=== PATIENT | female | born 1950 | race Caucasian/White ===

== ENCOUNTER → 2017-04-12 | Outpatient (CLI) | payer MEDICARE, OTHER | LOC: HEART 5 10:34 | DX: I65.23 Occlusion and stenosis of bilateral carotid arteries (principal) ==

== ENCOUNTER → 2021-01-17 | Outpatient (CLI) | payer MEDICARE, OTHER ==
[~2021-01-17] MED LIST: ACETAMINOPHEN-1 EAC1 PO; AEROECLIPSE II1 EACH MC; ALBUTEROL2.5 MG/3 M INH; ASPIRIN81 MG PO; BENADRYL25 MG PO; BENTYL 20MG TAB20 MG PO; BIOTIN1 MG PO; CALCIUM 500 +1 EACH PO; CALCIUM CARBON400 MG PO; CLARITIN10 MG PO; CONSTULOSE10 GM/15 M PO; DULERA 100 MCG8.8 GM INH; DULERA 200 MCG8.8 GM INH; ELIQUIS 5 MG TAB5 MG PO; EPIPEN 2-P0.3 MG/0.3 INJ; FERROUS SU300 MG/5 M PEG; FLORINEF 0.1 M0.1 MG PO; HYDRALAZINE HC100 MG PO; HYDROXYZINE HCL25 MG PO; IPRAT-ALBUT 0.5-3 ML INH; K-DUR TAB 20 M20 MEQ PO; KEFLEX500 MG PO; LEVAQUIN500 MG PO; LEVOFLOXACIN500 MG PO; LEVOFLOXACIN750 MG PO; LISINOPRIL20 MG PO; LOPRESSOR 50 MG50 MG PO; LOVASTATIN20 MG PO; MIRALAX17 GM PO; MUCINEX FAST-M1 EAC2 PO; MUCUS RELIEF PO; MULTIPLE VITAM1 EACH PO; NEURONTIN 400400 MG PO; NITROSTAT0.4 MG SL; OMEGA-3 PO; PEPCID20 MG PO; POTASSIUM PO; PREDNISONE20 MG PO; PROAMATINE 2.52.5 MG PO; PROBIOTIC1 EAC1 PO; PROBIOTIC1 EAC3 PO; SPIRIVA RESPIMAT4 GM INH; SULFAMETHOXAZO1 EACH PO; SYNTHROID50 MCG PO; TENORMIN 25 MG25 MG PO; VENTOLIN HFA 66.7 GM INH; VISTARIL 25 MG25 MG PO; VITAMIN B-12500 MC2 PO; VITAMIN D31000 UNI1 PO; ZANTAC 150 MG150 MG PO
--- NOTE | 2021-01-17 17:21 | NUR ---
1700 CALLED BY RADIOLOGIST TO GET INTO CONTACT WITH DR. WILLARD IVERSON WITH CRITICAL CT RESULTS, I WAS UNABLE TO FIND CONTACT INFORMATION FOR DR. WILLARD IVERSON AFTER MULTIPLE ATTEMPTS, NOTIFIED RADIOLOGIST AND INSTRUCTED TO CONTACT PT AND NOTIFIY THEM OF THE NEED TO BE SEEN BY A MD IN THE ED. CALLED THE PT AND INFORMED HER THAT SHE NEEDED TO BE EVALUATED BY A MD DUE TO HER CT RESULTS AND THAT SHE NEEDED TO COME TO THE ER AND THAT WE WERE UNABLE TO REACH DR. IVERSON, PT STATES SHE HAS BEEN LIVING WITH THIS PAIN FOR A WHILE AND THAT SHE WOULD WAIT UNTIL SHE TALKED TO DR. IVERSON ON WEDNESDAY. I INFORMED HER MULTIPLE TIMES THAT SHE NEEDED TO BE SEEN IN THE ED. PT VERBALIZED UNDERSTANDING OF INSTRUCTIONS
== END ==
LOC: MRI 01-14 15:00
DX: M51.37 Other intervertebral disc degeneration, lumbosacral region (principal); M51.36 Other intervertebral disc degeneration, lumbar region; M50.31 Other cervical disc degeneration, high cervical region; M43.12 Spondylolisthesis, cervical region
CPT/HCPCS: 72141; 72148

== ENCOUNTER → 2021-01-30 | Outpatient (CLI) | payer MEDICARE, OTHER | LOC: LAB 10:43 | DX: M46.40 Discitis, unspecified, site unspecified (principal) | CPT/HCPCS: 36415; 85652; 86140 ==

== ENCOUNTER 2021-02-04 11:54 | Inpatient (IN) | payer MEDICARE, OTHER ==
[~2021-02-04] VITALS: Ht 157.5 cm; Wt 53.1 kg
[~2021-02-04 11:54] MED LIST changes: -FERROUS SU300 MG/5 M PEG; -K-DUR TAB 20 M20 MEQ PO; -LEVOFLOXACIN750 MG PO; -SULFAMETHOXAZO1 EACH PO
[2021-02-04 12:48] LABS: HEMOGLOBIN 10.6 gm/dl (12.3-15.3); RED BLOOD COUNT 3.75 M/UL (4.00-5.10); WHITE BLOOD COUNT 19.2 K/UL (4.5-11.0)
[2021-02-04 13:25] LABS: BUN/CREATININE RATIO 24 (0-10)
[2021-02-04] MEDS ORDERED: NITROSTAT0.4 MG SL (19:06)
[2021-02-05 02:43] LABS: HEMOGLOBIN 8.9 gm/dl (12.3-15.3)
[2021-02-05 02:49] LABS: RED BLOOD COUNT 3.22 M/UL (4.00-5.10); WHITE BLOOD COUNT 12.8 K/UL (4.5-11.0)
[2021-02-05 03:28] LABS: BUN/CREATININE RATIO 28 (0-10)
[2021-02-06 04:55] LABS: BUN/CREATININE RATIO 18 (0-10)
[2021-02-07 02:29] LABS: HEMOGLOBIN 7.3 gm/dl (12.3-15.3); RED BLOOD COUNT 2.61 M/UL (4.00-5.10); WHITE BLOOD COUNT 8.5 K/UL (4.5-11.0)
[2021-02-07 02:53] LABS: BUN/CREATININE RATIO 8 (0-10)
[2021-02-08 05:03] LABS: HEMOGLOBIN 8.6 gm/dl (12.3-15.3); WHITE BLOOD COUNT 8.4 K/UL (4.5-11.0)
[2021-02-08 05:04] LABS: RED BLOOD COUNT 3.07 M/UL (4.00-5.10)
[2021-02-08 05:18] LABS: BUN/CREATININE RATIO 6 (0-10)
--- NOTE | 2021-02-08 20:30 | NUR ---
PATIENT RECEIVED FROM PCU NURSES; PATIENT IS IN GOOD SPIRITS AND EAGER TO GET SETTLED; ATTEMPTED TO PLACE PATIENT IN ROOM 5103 BUT CALL [facility] WOULD NOT WORK SO PATIENT RELOCATED TO 5108. ALL BELONGINGS TRANSFERRED WITH THE PATIENT AND IN ROOM. PATIENT PLACED ON 3L HI DC N/C, TUBE FEEDING AND FLUID PUMPS SET UP AND FEEDING/FLUIDS BEGUN PER ORDERS. CALL [facility] IS WITHIN PATIENT'S REACH, PT DEMONSTRATED ABILITY TO USE [facility] TO CALL STAFF FOR WANTS/NEEDS.
[2021-02-09 03:46] LABS: HEMOGLOBIN 8.9 gm/dl (12.3-15.3); RED BLOOD COUNT 3.24 M/UL (4.00-5.10); WHITE BLOOD COUNT 9.3 K/UL (4.5-11.0)
[2021-02-09 04:02] LABS: BUN/CREATININE RATIO 8 (0-10)
[2021-02-09 15:10] LABS: ORGANISM ID Not indicated. (.); SPECIMEN SOURCE Urine (.); STREPTOCOCCUS PNEUMONIAE AG Negative (Negative)
[2021-02-10 03:03] LABS: HEMOGLOBIN 7.9 gm/dl (12.3-15.3); WHITE BLOOD COUNT 9.1 K/UL (4.5-11.0)
[2021-02-10 03:04] LABS: RED BLOOD COUNT 2.87 M/UL (4.00-5.10)
[2021-02-10 03:17] LABS: BUN/CREATININE RATIO 12 (0-10)
[2021-02-10] MEDS ORDERED: SULFAMETHOXAZO1 EACH PO (11:36)
[2021-02-10] MEDS ORDERED: FERROUS SU300 MG/5 M PEG (11:36)
[2021-02-10 14:11] LABS: HISTOPLASMA GAL'MANNAN AG UR <0.5 (<0.5 ng/mL)
--- NOTE | 2021-02-10 14:58 | NUR ---
1400 SHOWED PT HOW TO ADMINISTER TUBE FEEDINGS AND TO GIVE MEDS THROUGH THE PEG TUBE. PT STATES THAT SHE HAD A PEG TUBE ABOUT 18YRS AGO AND SHE IS FAMILIAR WITH IT. PT AND THE BOTH STATE THAT THEY HAVE NO QUESTIONS ABOUT THE PEG TUBE OR GIVING THE MEDICATIONS.
--- NOTE | 2021-02-10 17:01 | NUR ---
WAS INFORMED BY PURIFICATION DIRECTOR KP PATIENT CAN GO HOME AND TO GIVE 8 CANS OF GLUCERNA
--- NOTE | 2021-02-10 17:20 | NUR ---
TOTAL 12 CANS OF GLUCERNA GIVEN TO PATIENT. PATEINT REFUSED TO USE O2 GOING HOME AND STATED SHE DOES NOT NEED OXYGEN TO TRAVEL. PROVIDED EDUCATION AND PATIENT VERB UNDERSTANDING
== END 2021-02-10 17:23 | disposition home or self-care (01) | DRG 871 ==
LOC: ER1 11:54 → PROG CARE 18:28 → CDU 18:28 → PROG CARE 21:00 → M/S 02-08 20:05
PROVIDERS: Student in an Organized Health Care Education/Training Program; Surgery; ADMIT Internal Medicine
PROC: 0DH63UZ Insertion of Feeding Device into Stomach, Percutaneous Approach (ICD-10-PCS; principal; 2021-02-07 07:30)
DX: A41.1 Sepsis due to other specified staphylococcus (principal); J96.21 Acute and chronic respiratory failure with hypoxia; J69.0 Pneumonitis due to inhalation of food and vomit; J15.29 Pneumonia due to other staphylococcus; J90 Pleural effusion, not elsewhere classified; J47.0 Bronchiectasis with acute lower respiratory infection; R65.20 Severe sepsis without septic shock; R13.10 Dysphagia, unspecified; D50.9 Iron deficiency anemia, unspecified; R31.29 Other microscopic hematuria; I48.0 Paroxysmal atrial fibrillation; E87.6 Hypokalemia; E11.9 Type 2 diabetes mellitus without complications; E03.9 Hypothyroidism, unspecified; I95.9 Hypotension, unspecified; Z20.822 Contact with and (suspected) exposure to COVID-19; R59.9 Enlarged lymph nodes, unspecified; D47.3 Essential (hemorrhagic) thrombocythemia; Z85.89 Personal history of malignant neoplasm of other organs and systems; Z79.01 Long term (current) use of anticoagulants; Z99.81 Dependence on supplemental oxygen; Z90.49 Acquired absence of other specified parts of digestive tract; Z98.890 Other specified postprocedural states; Z87.891 Personal history of nicotine dependence; Z88.0 Allergy status to penicillin; Z79.82 Long term (current) use of aspirin; Z79.899 Other long term (current) drug therapy; Z92.21 Personal history of antineoplastic chemotherapy; Z92.3 Personal history of irradiation; Z98.84 Bariatric surgery status; Z86.19 Personal history of other infectious and parasitic diseases
CPT/HCPCS: 0240U; 36415; 36600; 71045; 71046; 80048; 80053; 80202; 81001; 82550; 82553; 82728; 82803; 83036; 83540; 83550; 83605; 83690; 83735; 83874; 83880; 84100; 84132; 84484; 85025; 85027; 85379; 85610; 86140; 87040; 87070; 87077; 87186; 87205; 87278; 87385; 87899; 92610; 93005; 94640; 94664; 94760; 96365; 96368; 96375; 97116; 97116-GP-CQ; 97162; 97530; 99285; J0692; J0696; J1650; J2543; J2704; J3370; J3480; J7030; J7040; J7070; Q9967

== ENCOUNTER 2021-02-13 13:26 | Inpatient (IN) | payer MEDICARE, OTHER ==
[~2021-02-13] VITALS: Ht 157.5 cm; Wt 53.0 kg
[~2021-02-13 13:26] MED LIST changes: +FERROUS SU300 MG/5 M PEG; +SULFAMETHOXAZO1 EACH PO
[2021-02-13 14:21] LABS: RED BLOOD COUNT 3.24 M/UL (4.00-5.10)
[2021-02-13 14:35] LABS: BUN/CREATININE RATIO 18 (0-10)
[2021-02-14 04:56] LABS: HEMOGLOBIN 8.4 gm/dl (12.3-15.3); RED BLOOD COUNT 3.03 M/UL (4.00-5.10)
[2021-02-14 05:09] LABS: BUN/CREATININE RATIO 14 (0-10)
[2021-02-15 04:48] LABS: HEMOGLOBIN 8.2 gm/dl (12.3-15.3); RED BLOOD COUNT 2.94 M/UL (4.00-5.10); WHITE BLOOD COUNT 10.1 K/UL (4.5-11.0)
[2021-02-15 05:15] LABS: BUN/CREATININE RATIO 13 (0-10)
[2021-02-16 02:47] LABS: HEMOGLOBIN 8.6 gm/dl (12.3-15.3); RED BLOOD COUNT 3.13 M/UL (4.00-5.10)
[2021-02-16 03:25] LABS: BUN/CREATININE RATIO 23 (0-10)
[2021-02-17 04:50] LABS: HEMOGLOBIN 8.1 gm/dl (12.3-15.3); RED BLOOD COUNT 2.91 M/UL (4.00-5.10); WHITE BLOOD COUNT 8.8 K/UL (4.5-11.0)
[2021-02-17 05:13] LABS: BUN/CREATININE RATIO 26 (0-10)
[2021-02-18 09:17] LABS: HEMOGLOBIN 8.8 gm/dl (12.3-15.3); WHITE BLOOD COUNT 9.1 K/UL (4.5-11.0)
[2021-02-18 09:19] LABS: RED BLOOD COUNT 3.21 M/UL (4.00-5.10)
[2021-02-18 09:38] LABS: BUN/CREATININE RATIO 26 (0-10)
[2021-02-19 05:26] LABS: HEMOGLOBIN 8.6 gm/dl (12.3-15.3); RED BLOOD COUNT 3.11 M/UL (4.00-5.10); WHITE BLOOD COUNT 7.4 K/UL (4.5-11.0)
[2021-02-19 05:45] LABS: BUN/CREATININE RATIO 27 (0-10)
[2021-02-19 17:12] LABS: IMMUNOGLOBULIN A, QN, SERUM 386 mg/dL (64-422); IMMUNOGLOBULIN G, QN, SERUM 2596 mg/dL (586-1602); IMMUNOGLOBULIN M, QN, SERUM 65 mg/dL (26-217)
[2021-02-20 05:14] LABS: BUN/CREATININE RATIO 27 (0-10)
[2021-02-20] MEDS ORDERED: K-DUR TAB 20 M20 MEQ PO (09:20)
[2021-02-20] MEDS ORDERED: LEVOFLOXACIN750 MG PO (09:25)
--- NOTE | 2021-02-20 13:09 | NUR ---
instructed patient and caregiver on importance of potassium. keeping follow up appointments and taking all meds as orderd. verbalized understanding . Litzy Mulligan R.N.
== END 2021-02-20 14:31 | disposition home health service (06) | DRG 177 ==
LOC: ER1 13:26 → CDU 17:35 → MED SURG 4 17:35 → PROG CARE 02-14 17:44 → MED SURG 4 02-17 19:30
PROVIDERS: Internal Medicine; Internal Medicine Pulmonary Disease; Physician Assistant; Physician Assistant Medical; ADMIT Family Medicine
PROC: 0BJ08ZZ Inspection of Tracheobronchial Tree, Via Natural or Artificial Opening Endoscopic (ICD-10-PCS; principal; 2021-02-18 07:28)
DX: J69.0 Pneumonitis due to inhalation of food and vomit (principal); J96.21 Acute and chronic respiratory failure with hypoxia; R04.2 Hemoptysis; J15.6 Pneumonia due to other Gram-negative bacteria; J15.211 Pneumonia due to Methicillin susceptible Staphylococcus aureus; R59.9 Enlarged lymph nodes, unspecified; I48.0 Paroxysmal atrial fibrillation; D50.9 Iron deficiency anemia, unspecified; E87.6 Hypokalemia; I65.22 Occlusion and stenosis of left carotid artery; Z79.01 Long term (current) use of anticoagulants; Z90.49 Acquired absence of other specified parts of digestive tract; Z98.890 Other specified postprocedural states; Z88.0 Allergy status to penicillin; Z79.82 Long term (current) use of aspirin; Z79.899 Other long term (current) drug therapy; Z87.891 Personal history of nicotine dependence; E11.9 Type 2 diabetes mellitus without complications; Z20.822 Contact with and (suspected) exposure to COVID-19; J47.9 Bronchiectasis, uncomplicated; R31.29 Other microscopic hematuria
CPT/HCPCS: 36415; 36600; 70491; 71045; 71046; 80048; 80053; 80202; 82550; 82553; 82784; 82787; 82803; 82962; 83605; 83735; 83874; 83880; 84100; 84132; 84484; 85025; 85027; 86140; 87015; 87040; 87070; 87077; 87081; 87116; 87186; 87205; 87206; 93880; 94640; 94664; 94668; 94760; 96365; 96368; 97116-GP-CQ; 97161; 99285; J2543; J2704; J2920; J3370; J7040; J7070; Q0177; Q9963; Q9967; U0002

== ENCOUNTER → 2021-03-07 | Outpatient (CLI) | payer MEDICARE, OTHER ==
[~2021-03-07] MED LIST changes: +K-DUR TAB 20 M20 MEQ PO; +LEVOFLOXACIN750 MG PO
== END ==
LOC: HEART 5 10:59
DX: R06.02 Shortness of breath (principal); J98.11 Atelectasis
CPT/HCPCS: 71046

== ENCOUNTER → 2021-03-10 | Outpatient (CLI) | payer MEDICARE, OTHER | LOC: RAD 14:13 | DX: M54.9 Dorsalgia, unspecified (principal); M51.34 Other intervertebral disc degeneration, thoracic region | CPT/HCPCS: 72072 ==

== ENCOUNTER → 2021-03-19 | Outpatient (CLI) | payer MEDICARE, OTHER | LOC: EMI 15:52 | DX: M43.9 Deforming dorsopathy, unspecified (principal); M47.814 Spondylosis without myelopathy or radiculopathy, thoracic region | CPT/HCPCS: 72146 ==

== ENCOUNTER → 2021-05-05 | Outpatient (CLI) | payer MEDICARE, OTHER | LOC: RAD 03-20 08:30 | DX: J69.0 Pneumonitis due to inhalation of food and vomit (principal) | CPT/HCPCS: 74230; 92611-GN ==

== ENCOUNTER 2021-05-16 10:07 | Emergency (ER) | payer MEDICARE, OTHER | END 2021-05-16 14:30 | disposition home or self-care (01) | LOC: ER1 10:07 | DX: S80.12XA Contusion of left lower leg, initial encounter (principal); S80.11XA Contusion of right lower leg, initial encounter; I48.91 Unspecified atrial fibrillation; J44.9 Chronic obstructive pulmonary disease, unspecified; Z90.49 Acquired absence of other specified parts of digestive tract; Z88.0 Allergy status to penicillin; Z87.891 Personal history of nicotine dependence; X58.XXXA Exposure to other specified factors, initial encounter | CPT/HCPCS: 93970; 99283 ==

== ENCOUNTER → 2021-06-27 | Outpatient (CLI) | payer MEDICARE, OTHER | LOC: RAD 08:30 | DX: J69.0 Pneumonitis due to inhalation of food and vomit (principal) | CPT/HCPCS: 74230; 92611-GN ==

== ENCOUNTER → 2021-09-01 | Outpatient (CLI) | payer MEDICARE, OTHER | LOC: RAD 11:23 | DX: M79.672 Pain in left foot (principal); S92.355A Nondisplaced fracture of fifth metatarsal bone, left foot, initial encounter for closed fracture | CPT/HCPCS: 73620 ==

== ENCOUNTER → 2021-09-11 | Day surgery (SDC) | payer MEDICARE, OTHER ==
[~2021-09-11] MED LIST changes: +LINZESS290 MCG PO
== END | disposition home or self-care (01) ==
LOC: OR 06:04
DX: K59.09 Other constipation (principal); D12.0 Benign neoplasm of cecum; D12.2 Benign neoplasm of ascending colon; D12.3 Benign neoplasm of transverse colon; J96.11 Chronic respiratory failure with hypoxia; K64.1 Second degree hemorrhoids; I10 Essential (primary) hypertension; E05.90 Thyrotoxicosis, unspecified without thyrotoxic crisis or storm; M19.90 Unspecified osteoarthritis, unspecified site; K57.30 Diverticulosis of large intestine without perforation or abscess without bleeding; J44.9 Chronic obstructive pulmonary disease, unspecified; Z86.010 Personal history of colon polyps; Z88.0 Allergy status to penicillin; Z79.82 Long term (current) use of aspirin; Z20.822 Contact with and (suspected) exposure to COVID-19; Z91.010 Allergy to peanuts; Z91.013 Allergy to seafood; Z85.9 Personal history of malignant neoplasm, unspecified
CPT/HCPCS: J2001; J2704; J7030; J7040

== ENCOUNTER → 2021-10-27 | Outpatient (CLI) | payer MEDICARE, OTHER | LOC: EXRD 13:17 | DX: I65.23 Occlusion and stenosis of bilateral carotid arteries (principal); Z87.09 Personal history of other diseases of the respiratory system | CPT/HCPCS: 71046; 93880 ==

== ENCOUNTER → 2022-08-05 | Outpatient (CLI) | payer MEDICARE, OTHER ==
[~2022-08-05] MED LIST changes: +FAMOTIDINE20 MG PO; +FIBER500 MG PO; +LEVOTHYROXINE75 MC1 PO; +LEVOTHYROXINE75 MCG PO; +MUCUS RELIEF400 MG PO; +POTASSIUM99 M3 PO
== END ==
LOC: RAD 13:04
DX: R05.9 Cough, unspecified (principal)
CPT/HCPCS: 71046